=== PATIENT | female | born 1995 | race Caucasian/White ===

== ENCOUNTER 2019-11-14 05:20 | Emergency (ER) | payer OTHER, MEDICAID, SELFPAY ==
[2019-11-14 05:23] VITALS: BP 174/90; PULSE 114; RESP 18; TEMP 36.3; O2SAT 94; BMI 22.4
--- NOTE | 2019-11-14 05:32 | ED.VISSUMM ---
- ER Visit Summary Date of Service: 11/14/19 Chief Complaint: Suicidal ideation History of Present Illness: The patient is a 24 F who presents with suicidal ideation that began tonight. Patient admits to drinking alcohol tonight. Patient is unsure how much she drank tonight. Patient made a comment tonight that she would be better off . The police then brought the patient to the emergency department for evaluation of her suicidal ideation. Currently, the patient is denying any suicidal ideation. Patient states she wants to go to work. Patient has a history of mood swings and takes Zoloft for that. Physical Examination: Vital signs are stable. Patient is afebrile. Patient is in no acute distress. Oral mucosa is pink and moist. Neck is supple. Trachea is midline. There is no JVD noted. Heart was regular rate and rhythm. Lungs are clear and equal bilaterally. Abdomen is soft. Bowel sounds are normal. There is no tenderness. There is no rebound or guarding noted. Skin is warm dry. Cranial nerves II through XII are intact. There are no focal motor or sensory deficits noted. Extremities are intact. There is no calf tenderness or edema. Patient denies any suicidal or homicidal ideations. Patient has a pleasant mood and affect. Test Results: CBC shows a mild leukocytosis of 11.4. Patient metabolic profile was within normal limits. Serum hCG was positive. Urine tox screen was negative. Serum alcohol level was elevated at 285. Emergency Department Course and Treatment: Patient will be observed in the emergency department until she is clinically sober. This should be at approximately 1330 hrs. today. Patient will be reevaluated for suicidality at that time. Disposition: Care of the patient was turned over to the oncoming physician. Impression: 1. Alcohol intoxication 2. Reported suicidal ideation This note was generated with [employer] dictation software. It may contain incorrect words, spelling, and punctuation that were not noted in review of the chart prior to signing ED Disposition - Plan for ED Patient: Diagnosis: Alcohol intoxication, Instructions: ED INTOXICATION Alcohol, ED Established Normal Symptoms Referrals: Brennon Page [Primary Care Provider] - 3-5 Days
--- NOTE | 2019-11-14 05:41 | ED.RN ---
PER DR. NARANJO, PT DOES NOT NEED A SITTER AT THIS TIME.
[2019-11-14 05:42] LABS: Vista UDS pH Range 5
[2019-11-14 05:43] LABS: Absolute Lymphocyte Count 4.11 X10^3/uL (0.83-4.51); Absolute Neutrophil Count 6.4 X10^3/uL (2.0-7.7); Basophil# 0.09 X10^3/uL; Basophil% 0.8 % (0-1); Eosinophil# 0.01 X10^3/uL; Eosinophils% 0.1 % (0-5); Hematocrit 42.1 % (37-47); Hemoglobin 14.4 g/dL (12.0-15.0); Lymphocyte # 4.11 X10^3/ul (4.0); Mean Corp Hgb Conc 34.2 g/dL (32-36); Mean Corpuscular Volume 90.5 fL (81-99); Mean Platelet Vol. 10.6 fl (6.2-12.0); Monocyte# 0.83 X10^3/uL; Monocyte% 7.3 % (0-10); NRBC Flagged by Analyzer 0 % (0-5); Neutrophil # 6.35 X10^3/uL (2.7-7.7); Neutrophil % 55.5 % (47-70); Platelet Count 267 K/mm3 (150-450); RBC Distribution Width CV 12.1 % (11.6-14.6); RBC Distribution Width SD 39.9 fl (35.1-43.9); Red Blood Count 4.65 M/mm3 (4.2-5.4); White Blood Count 11.4 K/mm3 (4.4-11.0)
[2019-11-14 05:54] LABS: Amphetamine Urine VISTA NEGATIVE (<1000 ng/mL); Barbiturate Urine VISTA NEGATIVE (< 200 ng/mL); Benzodiazepine Urine VISTA NEGATIVE (< 200 ng/mL); Cocaine Urine VISTA NEGATIVE (< 300 ng/mL); Ecstacy Urine VISTA NEGATIVE (< 500 ng/mL); Methadone Urine VISTA NEGATIVE (< 300 ng/mL); PCP Urine VISTA NEGATIVE (< 25 ng/mL); THC Urine VISTA NEGATIVE (< 50 ng/mL)
[2019-11-14 05:55] LABS: Anion Gap 11 (5-15); BUN 9 mg/dL (7-18); BUN/Creat Ratio 12.2 RATIO (10-20); Chloride 108 mmol/L (98-107); Creatinine, Serum 0.74 mg/dL (0.55-1.02); EST Glomerular Filtration Rate 102 mL/min (>60); Est Glom Filt Rate - Afr Amer 123 mL/min (>60); Estimated Creatinine Clearance 91.92 ml/min; Glucose 87 mg/dL (74-106); Potassium 3.6 mmol/L (3.5-5.1); Sodium Level 141 mmol/L (136-145)
[2019-11-14 05:58] LABS: Internal QC Validated? YES +Cl - CLEAR BKGD; Pregnancy, Serum, hCG Quali. POSITIVE Negative
[2019-11-14 07:19] VITALS: BP 128/68; PULSE 120; RESP 18
--- NOTE | 2019-11-14 09:06 | ED.RN ---
PATIENT REQUESTS RN TO BEDSIDE. PATIENT MADE AWARE OF PLAN OF CARE AND NEED TO WAIT FOR ETOH LEVEL TO BE 100 PRIOR TO EVALUATION BY CRISIS COUNSELOR. PATIENT DENIES FURTHER NEEDS AT THIS TIME.
[2019-11-14 09:37] VITALS: BP 147/80; PULSE 117; RESP 20
[2019-11-14 10:22] VITALS: PULSE 110; RESP 18
[2019-11-14] MEDS: LORazepam 1 MG Tablet PO (11:29)
[2019-11-14 11:54] LABS: hCG Titer Quant., Serum 45 mIU/mL (1-3)
[2019-11-14 12:11] VITALS: PULSE 110; RESP 16
[2019-11-14 13:31] VITALS: BP 142/88; PULSE 114; RESP 18
--- NOTE | 2019-11-14 14:36 | ED.VIS.GEN ---
History of Present Illness Chief Complaint: Suicidal Past Medical History - Allergies and Home Meds Allergies/Adverse Reactions: Allergies No Known Allergies Allergy (Verified 11/14/19 05:28) Primary Care Physician: Brennon Page [Primary Care Provider] - 3-5 Days Smoking Status: Current every day smoker Physical Exam Vital Signs/Narrative: Vital Signs Pulse Resp BP 11/14/19 13:31 114 H 18 142/88 H 11/14/19 12:11 110 H 16 ED Disposition - Plan for ED Patient: Diagnosis: Alcohol intoxication, Instructions: ED INTOXICATION Alcohol, ED Established Normal Symptoms Referrals: Brennon Page [Primary Care Provider] - 3-5 Days Counseling,Center [GROUP OF PHYSICIANS] - Izabela Finley MD [STAFF PHYSICIAN] -
== END 2019-11-14 14:52 | disposition home or self-care (01) ==
LOC: ED 05:49
PROVIDERS: Emergency Medicine; Emergency Provider Emergency Medicine; PCP Family Medicine
DX: O99.310 Alcohol use complicating pregnancy, unspecified trimester (principal); F10.129 Alcohol abuse with intoxication, unspecified; Z72.89 Other problems related to lifestyle; O99.340 Other mental disorders complicating pregnancy, unspecified trimester; F32.9 Major depressive disorder, single episode, unspecified; O99.330 Smoking (tobacco) complicating pregnancy, unspecified trimester; F17.200 Nicotine dependence, unspecified, uncomplicated; Z3A.00 Weeks of gestation of pregnancy not specified; Y90.8 Blood alcohol level of 240 mg/100 ml or more; Z79.899 Other long term (current) drug therapy
CPT/HCPCS: 36415; 80048; 80307; 80320; 84702; 84703; 85025; 99284; G0480

== ENCOUNTER 2023-06-08 14:35 | Day surgery (SDC) | payer OTHER, MEDICAID, SELFPAY ==
[2023-06-08] VITALS (11 sets, daily range): BP systolic 100–134; BP diastolic 56–72; PULSE 52–98; RESP 16; TEMP 36.1–37.1; O2SAT 92–97; BMI 27.3
[2023-06-08] MEDS: 0.9% Normal Saline (1000mL) 1,000 ML 1000 ML IV (15:17)
--- NOTE | 2023-06-08 15:28 | HP.PCM_ITS ---
HPI - General General Date of Service: 06/08/23 Chief Complaint: Acute onset abdominal pain HPI Narrative KIMMY JAQUEZ, is a 27 F who presents to [facility] on direct transfer from [facility] where she presented earlier today with c omplaints of acute onset right lower quadrant abdominal discomfort. She states that she has had this discomfort previously, but never to the intensity she experienced this morning. She notes that it was associated with some significant nausea and chills. Patient's outside ER workup revealed WBC of 12,[address] imaging of the abdomen pelvis was read by radiology is consistent with acute uncomplicated appendicitis. There is at this point that the outside ER contacted our hospital to inquire as to the availability of surgery. I accepted the patient in transfer and patient arrived by private vehicle to our facility earlier this hour. Patient has no significant past medical history and her past surgical history includes just 1 prior orthopedic procedure. [facility] Medical History no medical history Home Medications sertraline 100 mg tablet 150 mg PO DAILY 11/14/19 [History Last Taken Unknown] Allergy/AdvReac Type Severity Reaction Status Date / Time No Known Allergies Allergy Verified 06/08/23 14:36 Social History Smoking Status: Former smoker Vital Signs Vital Signs Vital Signs: 06/08/23 14:35 Temperature 96.9 F L Temperature Source Oral Pulse Rate 84 Respiratory Rate 16 Blood Pressure 123/72 H Blood Pressure Mean 89 Pulse Ox 97 Oxygen Delivery Method Room Air Weight Weight: 149 lb 9 oz Body Mass Index (BMI) 27.3 Physical Exam Const alert, oriented x3 and no apparent distress General Appearance: cooperative Resp normal respiratory effort GI GI Narrative: Nondistended, soft, tender to palpation over McBurney's point Assessment & Plan Assessment/Plan (1) Acute appendicitis: PLAN: Patient is a 27-year-old, otherwise healthy, female who presents with signs and symptoms of acute appendicitis per workup from outside ER. Her exam is further consistent with this diagnosis and I have offered her laparoscopic a ppendectomy. I shared with her the general management of acute appendicitis and the occasional use of antibiotic?only therapy for certain subset of the population. However, I counseled her that there is a significant recurrence rate and that this course of treatment does not provide us a specimen to determine the cause of the appendicitis. Upon hearing this information patient readily accepts the recommendation to pursue surgery. Procedure was described in detail including postprocedural expectations. All questions were taken from patient and her family. Will now proceed to the operating room for emergent laparoscopic appendectomy. (Antibiotics were already dosed with 1 g of Invanz per outside ER) Charges/Coding Visit Charges Office Visits / Consults: 32580 ED Visit; High/Urgent Severity
--- NOTE | 2023-06-08 15:36 | ED.VIS.GI ---
HPI HPI - GI History of Present Illness Chief Complaint: Abd Pain Narrative Narrative: 27-year-old female presenting with abdominal pain in the right lower quadrant. Shortness morning. She states she has had this relatively on and off for months although this was sharper. Patient states started to feel nauseous and started googling symptoms. Patient went to the emergency room today after that. Patient's was diagnosed with acute appendicitis at [facility] and ultimately was transferred to [facility] under the acceptance of Dr. Isaac. Patient transported by POV. She states she feels a little bit better than when she arrived to the ER today. She was given a dose of IV antibiotics but does not know recall the name. PFSH PFSH Medical History no medical history Home Medications sertraline 100 mg tablet 150 mg PO DAILY 11/14/19 [History Last Taken Unknown] Allergy/AdvReac Type Severity Reaction Status Date / Time No Known Allergies Allergy Verified 06/08/23 14:36 Social History Smoking Status: Former smoker ROS ROS ED Constitutional Constitutional ED: Denies chills, fever(s) or sweats Eyes Eyes: Denies blurry vision or change in vision ENT ENT ED: Denies ear pain or sore throat Cardiovascular Cardiovascular: Denies chest pain, palpitations or racing heartbeat Respiratory/Chest Respiratory/Chest: Denies cough, dyspnea or sputum Gastrointestinal Gastrointestinal: Reports abdominal pain and nausea; Denies constipation, diarrhea or vomiting Genitourinary Genitourinary ED: Denies dysuria, hematuria or urinary frequency Musculoskeletal Musculoskeletal: Denies arthralgias, myalgias or neck pain Integumentary Denies abscess, Abrasions or rash Neurologic Neurologic: Denies headache(s), paresthesias or weakness Psychiatric Psychiatric: Denies anxiety, depression, suicidal ideation or suicidal thoughts Endocrine Endocrinology: Denies polydipsia or polyuria EXAM Physical Exam Const Vital Signs: 06/08/23 14:35 Temperature 96.9 F L Temperature Source Oral Pulse Rate 84 Respiratory Rate 16 Blood Pressure 123/72 H Blood Pressure Mean 89 Pulse Ox 97 Oxygen Delivery Method Room Air Positive well nourished General Appearance ED: Negative for pallor HEENT Reports moist mucous membranes normocephalic and atraumatic Eyes PERRL Resp normal respiratory effort Cardio regular rate and regular rhythm GI Palpation: tender RLQ Back/Spine no CVA tenderness Neuro CN's II-XII intact bilaterally and moves all extremities Sensorium / Orientation: alert Psych mental status grossly normal Skin General Skin Exam: Negative for jaundice or pallor MDM MDM MDM Narrative Medical decision making narrative: Patient presenting diagnosed with acute appendicitis. CT was reviewed. Labs were reviewed. Patient has leukocytosis of 12,000. Renal function electrolytes unremarkable. Urinalysis negative for infection. Discussed case with Dr. Isaac who expected for the patient in transfer. He reviewed the CT which was sent digitally from [place]. Patient already received antibiotics. She was given IV fluids. Patient will be admitted to Dr. Isaac for acute appendicitis for appendectomy Impression: 1. Leukocytosis 2. Acute appendicitis Lab Data Attestation: I reviewed the patient's lab results. Discharge Plan Triage Chief Complaint: Abd Pain ED Provider: Karlos Tsang Dx/Rx/DC Orders Prescriptions: No Action sertraline 100 MG tablet 150 mg PO DAILY Primary Care Provider: Brennon Page Referrals: Brennon Page MD [Primary Care Provider] -
[2023-06-08 15:38] LABS: Absolute Lymphocyte Count 1.76 X10^3/uL (0.83-4.51); Absolute Neutrophil Count 7.3 X10^3/uL (2.0-7.7); Basophil# 0.06 X10^3/uL; Basophil% 0.6 % (0-1); Eosinophil# 0.13 X10^3/uL; Eosinophils% 1.3 % (0-5); Hemoglobin 13.1 g/dL (12.0-15.0); Lymphocyte # 1.76 X10^3/ul (0.83-4.51); Lymphocyte % 17.8 % (19-41); Mean Corp Hgb Conc 33.6 g/dL (32-36); Mean Corpuscular Volume 89.2 fL (81-99); Mean Platelet Vol. 11.1 fl (6.2-12.0); Monocyte# 0.65 X10^3/uL; Monocyte% 6.6 % (0-10); NRBC Flagged by Analyzer 0 % (0-5); Neutrophil # 7.26 X10^3/uL (2.7-7.7); Neutrophil % 73.3 % (47-70); Platelet Count 212 K/mm3 (150-450); RBC Distribution Width CV 12.7 % (11.6-14.6); RBC Distribution Width SD 41.5 fl (35.1-43.9); Red Blood Count 4.37 M/mm3 (4.2-5.4); White Blood Count 9.9 K/mm3 (4.4-11.0)
[2023-06-08 15:53] LABS: Anion Gap 4 (5-15); BUN 10 mg/dL (7-18); BUN/Creat Ratio 15.5 RATIO (10-20); Calcium,Total 8.3 mg/dL (8.5-10.1); Chloride 111 mmol/L (98-107); Creatinine, Serum 0.64 mg/dL (0.55-1.02); EST Glomerular Filtration Rate 116 mL/min (>60); Est Glom Filt Rate - Afr Amer 140 mL/min (>60); Estimated Creatinine Clearance 118.17 ml/min; Glucose 88 mg/dL (74-106); Potassium 3.7 mmol/L (3.5-5.1); Sodium Level 140 mmol/L (136-145)
[2023-06-08] MEDS: Bupiv/Epi 0.25% 30 ML Vial (18:55)
--- NOTE | 2023-06-08 18:55 | PCM.OPRPT ---
Report of Operation Date of Procedure: 06/08/23 Pre-Operative Diagnosis: Acute appendicitis Post-Operative Diagnosis: Acute uncomplicated appendicitis Surgery/Procedure Performed:: 1. Laparoscopic appendectomy 2. Peritoneal nodule biopsy Description of Surgical Findings:: ? Evidence of acute uncomplicated appendicitis with serosal injection adherence to surrounding soft tissues ? Firm pearlescent nodule located on the left medial umbilical fold Surgeon: Dajuan Isaac yarn texture machine operator: Adriana Belle Type of Anesthesia: General/Supplemental Anesthesiologist: Tyrone Au Specimen's removed: 1. Appendix 2. Nodule of left medial umbilical fold Drains: None Estimated Blood Loss (mL): 5 Description of Procedure: After appropriate identification in the preoperative holding area, the patient was brought to the operating room and placed supine on the operating room table. Antibiotics had been preoperatively administered as 1 g Invanz at outside ER facility. Patient was then induced with general endotracheal anesthetic. The abdomen was prepped and draped in usual sterile fashion. Formal timeout was conducted to confirm both the patient and the procedure. A supraumbilical incision was made and carried down to the level of the fascia which was sharply opened. After opening the peritoneum in like fashion a finger sweep was made to confirm position, and a balloon trocar was placed and pneumoperitoneum was established to 15 mmHg. Patient was positioned in Trendelenburg with the left side down. 2 additional 5 mm trocars were placed in the left lower quadrant and suprapubic positions. The peritoneum was inspected and there are no signs of inadvertent injury from this Lackey entry. The appendix was visualized with mild acute inflammation demonstrated serosal injection and adhesions to the surrounding soft tissues. Using blunt laparoscopic dissection, a window was made in the mesoappendix adjacent to the appendiceal base. The mesoappendix was divided with application of a laparoscopic harmonic. Then the base of the appendix was sealed and amputated with the use of an Endo KYREE stapler. The appendix was placed in an Endo Catch bag. The staple line was inspected for hemostasis. There was some slight oozing so I opted to watch this as I then transitioned my attention to the patient's anterior abdominal wall?specifically in the left medial umbilical fold. Here, upon entry, I had noted the presence of a pearlescent nodule approximately 1.5 cm in diameter. I opted to perform an excisional biopsy of this area using our harmonic scalpel to maintain hemostasis. Minimal peritoneal intrusion was required and the nodule was delivered from the peritoneum with a laparoscopic grasper. It was passed off the operative field for pathology. I once again examined the staple line at the appendectomy and found some slight oozing so I applied pressure after placing a Ray-Val gauze into the abdomen. While this brought about slowing of the oozing there was still some persisting oozing so I placed a swatch of Surgicel gauze atop the staple line and once again held pressure. No further bleeding was then seen and after hemostasis was confirmed the appendix was removed from the umbilical port site in the Endo Catch bag. Pneumoperitoneum was then evacuated and the supraumbilical port site fascia was closed with #1 Vicryl in a [id number] fashion. The port sites were infiltrated with 30 mL local anesthetic. The skin of each port site was closed with 4-0 Monocryl in a subcuticular fashion. Steri-Strips and OpSite dressings were applied. Patient tolerated procedure well without any apparent complications. They were awoken from general anesthetic without issue and transferred to post anesthesia care unit for ongoing recovery. Complications None Admit VTE Documentation VTE Mechan Device Prophylaxis: SCD's
--- NOTE | 2023-06-08 19:06 | DCINST_ITS ---
Discharge Instructions Diet Discharge Diet: No restrictions Activity Discharge Activity: May Not Drive (No driving while using narcotic pain medication) and May Shower (Postoperative day 1) May shower in (days): 2 Ice area for (Minutes): 20 Lifting Restrictions: No lifting greater than 15 pounds for 2 weeks after surgery Dressing / Incision Call your doctor if your incision/area has: Continuous Slow Oozing, Increased Pain/ Swelling, Increased Redness, Foul Smelling Discharge and Swelling at the incision site Call your doctor if you observe: Fever of 101 or Higher Remove Dressing in: 2 days (Please leave Steri-Strips intact until they fall off spontaneously or are taken off at your follow-up visit) Cleanse incision/area with: Soap & Water Follow Up Care Please Follow Up With: Dajuan Isaac MD When: 7-10days postop Test Results: Test results from this visit will be discussed in further detail at your follow- up appointment, if applicable. Discharge Plan Admission Primary Reason for Your Visit: Appendectomy Attending Provider: Dajuan Isaac Primary Care Provider: Brennon Page Discharge Orders/Prescriptions Prescriptions: New oxycodone 5 mg tablet 5 mg PO Q6H PRN (Reason: pain) 3 Days Qty: 10 0RF Continued sertraline 100 MG tablet 150 mg PO DAILY Referrals / Follow Up: Brennon Page MD [Primary Care Provider] - Disposition Disposition (needs filled in before D/C Order can be placed): Home, Self Care
--- NOTE | 2023-06-09 | APP_PTH ---
PATIENT: KIMMY JAQUEZ [place] [facility] [place][id number] AGE/SX: 27/F ROOM: RE06/08/[address]: Dr. Dajuan Isaac MD : 1995 BED: DIS: 06/08/2023 SPEC #: [id number] RECD: 06/09/23 12:55 STATUS: AMINA HUMPHREY #: [id number] DARCY: 06/09/23 00:[address]: Dajuan Isaac DEPT: SURGICAL PATHOLOGY RECD BY: Arjun Kahn ENTERED: 06/09/23 12:56 SP TYPE: APPENDIX OTHR DR: Dr. Brennon Page MD Tissues: A - Appendix, NOS B - Umbilical region Procedures: Surgery Specimen Level III HEADER OPERATION: Laparoscopic, Appendectomy with peritoneal nodule biopsy PRE-OP DIAGNOSIS: Acute appendicitis TISSUE SUBMITTED: A- Appendix, B- Nodule of the left medial umbilical fold MICROSCOPIC DIAGNOSIS A. Appendix, appendectomy: Acute appendicitis and periappendicitits. B. Left medial umbilical fold nodule, biopsy: A piece of fibroadipose tissue with chronic inflammation and fat necrosis. DIMITRI/ 06/10/23 MICROSCOPIC DESCRIPTION Slides are reviewed. GROSS DESCRIPTION A. Received in fixative is one container labeled with the patient's name and designated appendix. The specimen consists of a vermiform appendix measuring 6.0 cm in length and 0.8 cm in average diameter. No gross perforations are evident. Serial sections reveal a patent lumen with fecal material. No mass lesion is identified. The specimen is serially sectioned and submitted entirely in two cassettes. B. Received in fixative is one container labeled with the patient's name and designated Nodule of left umbilical fossa. The specimen consists of a single irregular fragment of indurated bruce-white soft tissue measuring 1.4 x 1.0 x 0.5cm. This specimen is bisected and totally submitted in one cassette. AM: 06/09/23 TC:2 CPT: 39528
== END 2023-06-08 20:36 | disposition home or self-care (01) ==
LOC: ED 15:29 → SDC 16:09 → ACINP 16:10
PROVIDERS: Emergency Provider Student in an Organized Health Care Education/Training Program; PCP Family Medicine; Visit Provider Surgery
PROC: 0DTJ4ZZ Resection of Appendix, Percutaneous Endoscopic Approach (ICD-10-PCS; CPT 44970; principal; 2023-06-08 17:30)
DX: K35.80 Unspecified acute appendicitis (principal); Z87.891 Personal history of nicotine dependence; L08.82 Omphalitis not of newborn; D72.829 Elevated white blood cell count, unspecified
CPT/HCPCS: 44970; 49321; 00840; 80048; 85025; 88304; 99285; J7030; J2405